=== PATIENT | female | born 1990 | race Two or more races ===

== ENCOUNTER 2019-10-13 04:30 | Emergency (ER) | payer OTHER ==
[2019-10-13] MEDS ORDERED: SODIUM CHLORIDE 0.9% 1,000 ML IV ONE (05:24)
[2019-10-13] MEDS ORDERED: METOCLOPRAMIDE 5 MG/ML 2 ML VIAL IVP STA (05:24)
[2019-10-13] MEDS ORDERED: KETOROLAC 30 MG/ML 1 ML VIAL IVP STA (05:24)
--- NOTE | 2019-10-13 05:32 | ED ---
Headache HPI - General Mode of arrival: ambulatory Limitations: no limitations - History of Present Illness MD Complaint: headache Onset/Timin -: days(s) Onset Description: gradual Location: facial Severity: moderate Quality: other (Pressure) Consistency: constant Improves With: nothing Worsens With: none Treatments Prior to Arrival: none <EduarYosef dotson - Last Filed: 10/13/19 05:33> <Erlin Hermosillo - Last Filed: 10/13/19 07:38> - General Chief Complaint: Headache Stated Complaint: vomiting Time Seen by Provider: 10/13/19 04:32 - Related Data Allergies Allergy/AdvReac Type Severity Reaction Status Date / Time diphenhydramine Allergy Rash/Hives Verified 10/13/19 04:40 [facility] Review of Systems ROS Other: All systems not noted in ROS Statement are negative. Constitutional: Denies: fever, chills, weakness Eyes: Denies: eye pain, eye discharge, vision change ENT: Reports: congestion. Denies: ear pain Respiratory: Denies: cough, dyspnea Cardiovascular: Denies: chest pain Gastrointestinal: Reports: nausea, vomiting. Denies: abdominal pain, diarrhea, constipation Musculoskeletal: Reports: myalgia. Denies: back pain Skin: Denies: rash Neurological: Reports: headache. Denies: weakness, numbness, paresthesias <Yosef Pearson - Last Filed: 10/13/19 05:33> ROS Other: All systems not noted in ROS Statement are negative. <Erlin Hermosillo - Last Filed: 10/13/19 07:38> ROS Statement: Those systems with pertinent positive or pertinent negative responses have been documented in the HPI. Past Medical History Past Medical History: No Reported History History of Any Multi-Drug Resistant Organisms: None Reported Past Surgical History: Adenoidectomy, Tonsillectomy Past Psychological History: Anxiety, Depression Smoking Status: Never smoker Past Alcohol Use History: None Reported Past Drug Use History: None Reported <MichelYosef - Last Filed: 10/13/19 05:33> General Exam Limitations: no limitations General appearance: alert, in no apparent distress Head exam: Present: atraumatic, normocephalic Eye exam: Present: normal appearance, PERRL, EOMI. Absent: scleral icterus, conjunctival injection, nystagmus ENT exam: Present: normal oropharynx Neck exam: Present: normal inspection, full ROM. Absent: meningismus, lymphadenopathy Neurological exam: Present: alert, oriented X3, CN II-XII intact. Absent: motor sensory deficit Skin exam: Present: warm, dry, intact, normal color. Absent: rash <MichelYosef - Last Filed: 10/13/19 05:33> Course Vital Signs 10/13/19 04:36 Temperature 98 F Pulse Rate 84 Respiratory 16 Rate Blood Pressure 133/84 O2 Sat by Pulse 96 Oximetry Medical Decision Making <Erlin Hermosillo - Last Filed: 10/13/19 07:38> - Medical Decision Making 28-year-old female presenting with headache. Care was signed out at shift change awaiting reevaluation and CT brain. CT brain was reviewed, negative for any acute intracranial pathology. Patient had a headache of gradual onset over the past 3 days. She has some associated myalgias and arthralgias. She was tested for COVID yesterday morning, these results are pending. She's had some diarrhea as well. On reevaluation she is feeling better, headache is significantly improved resting. She does have some mild persistent headache and will continue to treat her symptoms at home. She will return to the emergency department with worsening or changing symptoms. (Erlin Hermosillo) Disposition <MichelYosef - Last Filed: 10/13/19 05:33> Is patient prescribed a controlled substance at d/c from ED?: No Time of Disposition: 07:38 <Erlin Hermosillo - Last Filed: 10/13/19 07:38> Clinical Impression: Headache Disposition: HOME SELF-CARE Condition: Good Instructions (If sedation given, give patient instructions): Acute Headache (ED) Referrals: Lux Shepard Jr, DO [Primary Care Provider] - 1-2 days
--- NOTE | 2019-10-13 07:17 | CT ---
EXAMINATION TYPE: CT brain wo con DATE OF EXAM: 10/13/2019 COMPARISON: None HISTORY: headache CT DLP: 1099.[address] of the brain was performed. The ventricles, basal cisterns and sulci overlying the cerebral convexities demonstrate a normal appe arance. There is no evidence for intracranial hemorrhage or sulcal effacement. No mass effects are seen. Osseous calvarium is intact. If symptoms persist consider MRI as clinically warranted. IMPRESSION: 1. No acute intracranial process is seen at this time.
[2019-10-13 08:07] VITALS: BP 113/73; PULSE 77; RESP 18; TEMP 97.8
== END 2019-10-13 08:06 | disposition home or self-care (01) ==
LOC: EC 04:30
DX: R51 Headache (principal); M79.10 Myalgia, unspecified site; M25.50 Pain in unspecified joint; R19.7 Diarrhea, unspecified; Z88.8 Allergy status to other drugs, medicaments and biological substances
CPT/HCPCS: 70450; 96374; 96375; 96361 ×2; 99284; J2765; J1885

== ENCOUNTER 2019-10-19 10:44 | Emergency (ER) | payer OTHER ==
[2019-10-19] MEDS ORDERED: SODIUM CHLORIDE 0.9% 1,000 ML IV STA (11:31)
[2019-10-19] MEDS ORDERED: KETOROLAC 30 MG/ML 1 ML VIAL IVP STA (11:31)
[2019-10-19] MEDS ORDERED: METOCLOPRAMIDE 5 MG/ML 2 ML VIAL IVP STA (11:31)
[2019-10-19] MEDS ORDERED: diphenhydrAMINE 50 MG/ML 1 ML VIAL IVP STA (11:31)
[2019-10-19 11:54] LABS: Basophils # (A) 0.1 k/uL (0-0.2); Basophils % (A) 1 %; Eosinophils # (A) 0.1 k/uL (0-0.7); Eosinophils % (A) 1 %; HCT 43.4 % (34.0-46.0); HGB 14.2 gm/dL (11.4-16.0); Lymphocytes # (A) 1.1 k/uL (1.0-4.8); Lymphocytes % (A) 15 %; MCH 28.9 pg (25.0-35.0); MCHC 32.6 g/dL (31.0-37.0); MCV 88.5 fL (80.0-100.0); Monocytes # (A) 0.2 k/uL (0-1.0); Monocytes % (A) 3 %; Neutrophils # (A) 5.9 k/uL (1.3-7.7); Neutrophils % (A) 79 %; Platelet Count 321 k/uL (150-450); RBC 4.91 m/uL (3.80-5.40); RDW 12.9 % (11.5-15.5); WBC 7.5 k/uL (3.8-10.6)
[2019-10-19 11:59] LABS: ALT 12 U/L (4-34); AST 19 U/L (14-36); African American GFR (CKD) >90 (>60 ml/min/1.73 sqM); Albumin 4.5 g/dL (3.5-5.0); Alkaline Phosphatase 76 U/L (38-126); Anion Gap 9 mmol/L; Blood Urea Nitrogen 8 mg/dL (7-17); Calcium 9.3 mg/dL (8.4-10.2); Carbon Dioxide 27 mmol/L (22-30); Chloride 101 mmol/L (98-107); Glucose 106 mg/dL (74-99); Non-African American GFR(CKD) >90 (>60 ml/min/1.73 sqM); Potassium 4.2 mmol/L (3.5-5.1); Sodium 137 mmol/L (137-145); Total Bilirubin 0.5 mg/dL (0.2-1.3); Total Protein 7.5 g/dL (6.3-8.2)
[2019-10-19 12:13] LABS: Appearance,Urine Cloudy (Clear); Bacteria,Urine Rare /hpf; Bilirubin,Urine Negative (Negative); Blood,Urine Negative (Negative); Color,Urine Light Yellow; Glucose,Urine (UA) Negative (Negative); Ketones,Urine Negative (Negative); Leukocyte Esterase,Urine Negative (Negative); Mucus,Urine Rare /hpf; Nitrite,Urine Negative (Negative); Protein,Urine Negative (Negative); RBC,Urine 7 /hpf (0-5); Specific Gravity,Urine 1.012 (1.001-1.035); Squamous Epithelial Cell,Urine 3 /hpf (0-4); Urobilinogen,Urine <2.0 mg/dL (<2.0); WBC,Urine 1 /hpf (0-5)
[2019-10-19] MEDS ORDERED: MORPHINE SULFATE 4 MG/ML SYRINGE IVP STA (13:28)
--- NOTE | 2019-10-19 13:40 | ED ---
Nausea/Vomiting/Diarrhea HPI - General Chief complaint: Nausea/Vomiting/Diarrhea Stated complaint: dizziness/vomiting Time Seen by Provider: 10/19/19 11:13 Source: patient Mode of arrival: ambulatory Limitations: no limitations - History of Present Illness Initial comments: Patient is a 28-year-old female presenting to the emergency with complaints of a headache as well as feeling nauseous and one episode of vomiting. Patient states she was in the ER last week for same complaint. She did receive a head CT which had normal findings. COVID test was negative. Patient states she did follow up with her PCP and was placed on a pain medicine. Patient has history of anxiety and she feels like this may be playing a role into it. She denies any falls or trauma. She states the pain has still been gradual onset, she had one episode of vomiting this morning. She still continues to be nauseous. There've been no fevers or chills. No chest pain, shortness of breath. No diarrhea. No other recent medications. Patient states she has tried Excedrin for migraine in the past but did not take any this time. She states she took a [place] last night. There are no further complaints at this time. - Related Data Home Medications Medication Instructions Recorded Confirmed HYDROcodone/APAP 5-325MG [[place] 1 tab PO Q8H PRN 10/19/19 10/19/19 5-325] Loratadine [Claritin] 10 mg PO HS 10/19/19 10/19/19 Norgestimate-Ethinyl Estradiol 1 tab PO HS 10/19/19 10/19/19 [Tri-Sprintec Tablet] Ondansetron [Zofran] 4 mg PO Q8H PRN 10/19/19 10/19/19 Sertraline [Zoloft] 50 mg PO HS 10/19/19 10/19/19 Allergies Allergy/AdvReac Type Severity Reaction Status Date / Time diphenhydramine Allergy Rash/Hives Verified 10/19/19 11:50 [From Benadryl] Review of Systems ROS Statement: Those systems with pertinent positive or pertinent negative responses have been documented in the HPI. ROS Other: All systems not noted in ROS Statement are negative. Past Medical History Past Medical History: No Reported History History of Any Multi-Drug Resistant Organisms: None Reported Past Surgical History: Adenoidectomy, Tonsillectomy Past Psychological History: Anxiety, Depression Smoking Status: Never smoker Past Alcohol Use History: None Reported Past Drug Use History: None Reported General Exam - General Exam Comments Initial Comments: GENERAL: Well-appearing, well-nourished and in no acute distress. HEAD: Atraumatic, normocephalic. EYES: Pupils equal round and reactive to light, extraocular movements intact, sclera anicteric, conjunctiva are normal. ENT: TMs normal, nares patent, oropharynx clear without exudates. Moist mucous membranes. NECK: Normal range of motion, supple without lymphadenopathy or JVD. LUNGS: Breath sounds clear to auscultation bilaterally and equal. No wheezes rales or rhonchi. HEART: Regular rate and rhythm without murmurs, rubs or gallops. ABDOMEN: Soft, nontender, normoactive bowel sounds. No guarding, no rebound. No masses appreciated. : Deferred EXTREMITIES: Normal range of motion, no pitting or edema. No clubbing or cyanosis. Patient has 5 out of 5 strength upper and lower extremities bilaterally, sensation is equal and bilateral. NEUROLOGICAL: Cranial nerves II through XII grossly intact. Normal speech, normal gait. PSYCH: Normal mood, normal affect. SKIN: Warm, Dry, normal turgor, no rashes or lesions noted. Limitations: no limitations Course Vital Signs 10/19/19 10/19/19 10/19/19 10:45 13:46 14:30 Temperature 97.8 F 97.9 F Pulse Rate 85 80 Respiratory 20 17 18 Rate Blood Pressure 144/86 132/85 O2 Sat by Pulse 99 97 Oximetry Medical Decision Making - Medical Decision Making Patient is a 28-year-old female here for a headache as well as nausea and vomiting that has been intermittent for the past 1-2 weeks. Patient seen in the ER last week, had normal head CT. Patient's exam is unremarkable, no neural deficits. Patient was given pain meds, Reglan, Benadryl. She reported some improvement in her symptoms. Blood work is unremarkable, urine shows no evidence of infection. Patient was still having a moderate headache so I did add some morphine. She states she feels stable for discharge. She'll follow up with her PCP. Patient is in agreement with this plan of care. Return paramet ers were discussed with the patient and she verbalized understanding. Case discussed with Dr. camejo. - Lab Data Result diagrams: 10/19/19 11:36 10/19/19 11:36 Lab Results 10/19/19 10/19/19 10/19/19 Range/Units 11:36 11:36 11:54 WBC 7.5 (3.8-10.6) k/uL RBC 4.91 (3.80-5.40) m/uL Hgb 14.2 (11.4-16.0) gm/dL Hct 43.4 (34.0-46.0) % MCV 88.5 (80.0-100.0) fL MCH 28.9 (25.0-35.0) pg MCHC 32.6 (31.0-37.0) g/dL RDW 12.9 (11.5-15.5) % Plt Count 321 (150-450) k/uL Neutrophils % 79 % Lymphocytes % 15 % Monocytes % 3 % Eosinophils % 1 % Basophils % 1 % Neutrophils # 5.9 (1.3-7.7) k/uL Lymphocytes # 1.1 (1.0-4.8) k/uL Monocytes # 0.2 (0-1.0) k/uL Eosinophils # 0.1 (0-0.7) k/uL Basophils # 0.1 (0-0.2) k/uL Sodium 137 (137-145) mmol/L Potassium 4.2 (3.5-5.1) mmol/L Chloride 101 (98-107) mmol/L Carbon Dioxide 27 (22-30) mmol/L Anion Gap 9 mmol/L BUN 8 (7-17) mg/dL Creatinine 0.63 (0.52-1.04) mg/dL Est GFR (CKD-EPI)AfAm >90 (>60 ml/min/1.73 sqM) Est GFR (CKD-EPI)NonAf >90 (>60 ml/min/1.73 sqM) Glucose 106 H (74-99) mg/dL Calcium 9.3 (8.4-10.2) mg/dL Total Bilirubin 0.5 (0.2-1.3) mg/dL AST 19 (14-36) U/L ALT 12 (4-34) U/L Alkaline Phosphatase 76 (38-126) U/L Total Protein 7.5 (6.3-8.2) g/dL Albumin 4.5 (3.5-5.0) g/dL Urine Color Light Yellow Urine Appearance Cloudy H (Clear) Urine pH 8.0 (5.0-8.0) Ur Specific [place] 1.012 (1.001-1.035) Urine Protein Negative (Negative) Urine Glucose (UA) Negative (Negative) Urine Ketones Negative (Negative) Urine Blood Negative (Negative) Urine Nitrite Negative (Negative) Urine Bilirubin Negative (Negative) Urine Urobilinogen <2.0 (<2.0) mg/dL Ur Leukocyte Esterase Negative (Negative) Urine RBC 7 H (0-5) /hpf Urine WBC 1 (0-5) /hpf Ur Squamous Epith Cells 3 (0-4) /hpf Urine Bacteria Rare H (None) /hpf Urine Mucus Rare H (None) /hpf Urine HCG, Qual (Not Detectd) 10/19/19 Range/Units 11:54 WBC (3.8-10.6) k/uL RBC (3.80-5.40) m/uL Hgb (11.4-16.0) gm/dL Hct (34.0-46.0) % MCV (80.0-100.0) fL MCH (25.0-35.0) pg MCHC (31.0-37.0) g/dL RDW (11.5-15.5) % Plt Count (150-450) k/uL Neutrophils % % Lymphocytes % % Monocytes % % Eosinophils % % Basophils % % Neutrophils # (1.3-7.7) k/uL Lymphocytes # (1.0-4.8) k/uL Monocytes # (0-1.0) k/uL Eosinophils # (0-0.7) k/uL Basophils # (0-0.2) k/uL Sodium (137-145) mmol/L Potassium (3.5-5.1) mmol/L Chloride (98-107) mmol/L Carbon Dioxide (22-30) mmol/L Anion Gap mmol/L BUN (7-17) mg/dL Creatinine (0.52-1.04) mg/dL Est GFR (CKD-EPI)AfAm (>60 ml/min/1.73 sqM) Est GFR (CKD-EPI)NonAf (>60 ml/min/1.73 sqM) Glucose (74-99) mg/dL Calcium (8.4-10.2) mg/dL Total Bilirubin (0.2-1.3) mg/dL AST (14-36) U/L ALT (4-34) U/L Alkaline Phosphatase (38-126) U/L Total Protein (6.3-8.2) g/dL Albumin (3.5-5.0) g/dL Urine Color Urine Appearance (Clear) Urine pH (5.0-8.0) Ur Specific [place] (1.001-1.035) Urine Protein (Negative) Urine Glucose (UA) (Negative) Urine Ketones (Negative) Urine Blood (Negative) Urine Nitrite (Negative) Urine Bilirubin (Negative) Urine Urobilinogen (<2.0) mg/dL Ur Leukocyte Esterase (Negative) Urine RBC (0-5) /hpf Urine WBC (0-5) /hpf Ur Squamous Epith Cells (0-4) /hpf Urine Bacteria (None) /hpf Urine Mucus (None) /hpf Urine HCG, Qual Not Detected (Not Detectd) Disposition Clinical Impression: Headache, Nausea & vomiting Disposition: HOME SELF-CARE Condition: Stable Instructions (If sedation given, give patient instructions): Migraine Headache (ED) Additional Instructions: Please return to the Emergency Department if symptoms worsen or any other concerns. Follow-up with PCP as discussed. Is patient prescribed a controlled substance at d/c from ED?: No Referrals: Lux Shepard Jr, [Primary Care Provider] - 1-2 days
[2019-10-19 13:48] VITALS: BP 132/85; PULSE 80; TEMP 97.9
[2019-10-19 14:31] VITALS: RESP 18
== END 2019-10-19 14:31 | disposition home or self-care (01) ==
LOC: EC 10:44
DX: R11.2 Nausea with vomiting, unspecified (principal); R51 Headache; F41.9 Anxiety disorder, unspecified; F32.9 Major depressive disorder, single episode, unspecified; Z79.899 Other long term (current) drug therapy; Z88.8 Allergy status to other drugs, medicaments and biological substances
CPT/HCPCS: 36415; 80053; 85025; 81001; 81025; 99284; 96374; 96375 ×3; 96361 ×2; J2270; J1200; J2765; J1885

== ENCOUNTER 2020-04-11 16:26 | Emergency (ER) | payer OTHER ==
[2020-04-11 16:34] VITALS: BP 94/64; PULSE 102; RESP 18; TEMP 98.4
[2020-04-11] MEDS ORDERED: LIDOCAINE 1% INJ 10MG/ML (20 ML MDV) SQ ONE (16:47)
--- NOTE | 2020-04-11 16:47 | ED ---
Wound/Laceration HPI - General Chief Complaint: Wound/Laceration Stated Complaint: finger lac Time Seen by Provider: 04/11/20 16:38 Source: patient Mode of arrival: ambulatory Limitations: no limitations - History of Present Illness Initial Comments: 29-year-old male presenting to emergency departments chief complaint of laceration. States this occurred about half hour prior to arrival. Patient reports laceration was with a new clean knife on the lateral aspect of her right second digit. Patient reports for range of motion. Tetanus up-to-date. Minimal pain. Minimal bleeding. Denies numbness tingling. - Related Data Home Medications Medication Instructions Recorded Confirmed HYDROcodone/APAP 5-325MG [[place] 1 tab PO Q8H PRN 10/19/19 10/19/19 5-325] Loratadine [Claritin] 10 mg PO HS 10/19/19 10/19/19 Norgestimate-Ethinyl Estradiol 1 tab PO HS 10/19/19 10/19/19 [Tri-Sprintec Tablet] Ondansetron [Zofran] 4 mg PO Q8H PRN 10/19/19 10/19/19 Sertraline [Zoloft] 50 mg PO HS 10/19/19 10/19/19 Allergies Allergy/AdvReac Type Severity Reaction Status Date / Time bacitracin Allergy Unknown Verified 04/11/20 16:34 [From Neosporin ([id number])] diphenhydramine Allergy Rash/Hives Verified 04/11/20 16:34 [From Benadryl] neomycin Allergy Unknown Verified 04/11/20 16:34 [From Neosporin ([id number])] polymyxin B Allergy Unknown Verified 04/11/20 16:34 [From Neosporin ([id number])] Review of Systems ROS Statement: Those systems with pertinent positive or pertinent negative responses have been documented in the HPI. ROS Other: All systems not noted in ROS Statement are negative. Past Medical History Past Medical History: No Reported History History of Any Multi-Drug Resistant Organisms: None Reported Past Surgical History: Adenoidectomy, Tonsillectomy Past Psychological History: Anxiety, Depression Smoking Status: Never smoker Past Alcohol Use History: None Reported Past Drug Use History: None Reported General Exam Limitations: no limitations General appearance: alert, in no apparent distress Head exam: Present: atraumatic, normocephalic, normal inspection Eye exam: Present: normal appearance, PERRL, EOMI Pupils: Present: normal accommodation ENT exam: Present: normal exam, normal oropharynx Neck exam: Present: normal inspection, full ROM. Absent: tenderness Respiratory exam: Present: normal lung sounds bilaterally. Absent: respiratory distress, wheezes, rales Cardiovascular Exam: Present: regular rate, normal rhythm, normal heart sounds Extremities exam: Present: normal inspection (Laceration measuring approximately 1 cm linear superficial lateral aspect of the right second digit), full ROM, normal capillary refill. Absent: tenderness, pedal edema, joint swelling, calf tenderness Back exam: Present: normal inspection, full ROM. Absent: tenderness, CVA tenderness (R), CVA tenderness (L) Neurological exam: Present: alert, oriented X3, normal gait Psychiatric exam: Present: normal affect, normal mood Skin exam: Present: warm, dry, intact, normal color Course Vital Signs 04/11/20 16:30 Temperature 98.4 F Pulse Rate 102 H Respiratory 18 Rate Blood Pressure 94/64 O2 Sat by Pulse 98 Oximetry Procedures - Laceration Laceration #1 Consent Obtained: verbal consent Indication: laceration Site: hand (Right second digit) Size (cm): 1 Description: linear, clean Depth: simple, single layer Sedation/Analgesia: none Pre-repair: irrigated extensively, deep structures intact Type of Sutures: nylon Size of Sutures: 4-0 Number of Sutures: 1 Technique: simple, interrupted Patient Tolerated Procedure: well, no complications Medical Decision Making - Medical Decision Making 29-year-old female presenting to emergency Department with chief complaint of laceration. Patient is neurovascularly intact in the right second digit. Extensively irrigated. One suture to complete the laceration repair. Tetanus updated. Return parameters discussed. Case discussed with physician. Disposition Clinical Impression: Laceration Disposition: HOME SELF-CARE Condition: Stable Instructions (If sedation given, give patient instructions): Care For Your Stitches (DC), Laceration (DC) Additional Instructions: Please return to the emergency room in 10 days to have sutures removed. Please watch for any signs of infection which may include increased pain, swelling, redness, fever or chills. Please return to emergency room for any signs of infection do occur. Please use clean soap and water over the area to prevent scabbing over your stitches. Please leave wound covered for the first 24-48 hours and then leave wound open to air. Please return to the emergency room for any other concerns. Is patient prescribed a controlled substance at d/c from ED?: No Referrals: Lux Shepard Jr, DO [Primary Care Provider] - 1-2 days Time of Disposition: 17:00
[2020-04-11] MEDS ORDERED: DIPH,PERTUS(ACELL)TETVAC-LF 0.5 ML VIAL IM ONE (16:53)
== END 2020-04-11 17:02 | disposition home or self-care (01) ==
LOC: EC 16:26
DX: S61.210A Laceration without foreign body of right index finger without damage to nail, initial encounter (principal); F41.9 Anxiety disorder, unspecified; F32.9 Major depressive disorder, single episode, unspecified; Z79.3 Long term (current) use of hormonal contraceptives; Z79.899 Other long term (current) drug therapy; Z88.1 Allergy status to other antibiotic agents; Z88.8 Allergy status to other drugs, medicaments and biological substances; Z23 Encounter for immunization; W26.0XXA Contact with knife, initial encounter; Y93.G1 Activity, food preparation and clean up; Y92.000 Kitchen of unspecified non-institutional (private) residence as the place of occurrence of the external cause
CPT/HCPCS: 12001; 90471; 90715; 99282

== ENCOUNTER → 2021-06-29 | Outpatient (CLI) | payer OTHER ==
--- NOTE | 2021-06-29 11:48 | NM ---
EXAMINATION TYPE: NM hepatobiliary w EF DATE OF EXAM: 06/29/2021 COMPARISON: NONE HISTORY: 30-year-old female R10.12, left upper quadrant abdominal pain TECHNIQUE: After the intravenous administration of 4.8 mCi Tc 99m Mebrofenin hepatobiliary scintigrap hy is performed. Immediate images post injection. FINDINGS: There is satisfactory initial accumulation of tracer by the liver. The gallbladder is visualized wit hin 10 minutes. At one hour, 8 ounces of oral ensure plus is given to mimic CCK and gallbladder ejection fraction is calculated at 84 %, slightly elevated above the expected range (35-80%). Small bowel is visualized f ollowing intra-articular administration IMPRESSION: 1. No scintigraphic evidence for acute/chronic cholecystitis or biliary dyskinesia. 2. However, there is a mildly elevated gallbladder ejection fraction of 84%. Findings are nonspecific but may be seen with gallbladder hyperkinesis.
== END | disposition home or self-care (01) ==
LOC: RADNMMAIN 06:48
PROVIDERS: ATTEND Family Medicine
DX: R10.12 Left upper quadrant pain (principal); R93.2 Abnormal findings on diagnostic imaging of liver and biliary tract
CPT/HCPCS: 78226; A9537

== ENCOUNTER 2021-11-28 21:18 | Emergency (ER) | payer OTHER ==
[2021-11-28 21:28] VITALS: RESP 20
--- NOTE | 2021-11-28 21:51 | XR ---
EXAMINATION TYPE: XR hand complete RT DATE OF EXAM: 11/28/2021 COMPARISON: NONE HISTORY: Pain TECHNIQUE: 3 views FINDINGS: Metacarpals are intact. The fingers are intact. Carpal bones are intact. IMPRESSION: Negative right hand exam. No fracture seen.
--- NOTE | 2021-11-28 21:52 | XR ---
EXAMINATION TYPE: XR forearm RT DATE OF EXAM: 11/28/2021 COMPARISON: NONE HISTORY: Pain TECHNIQUE: 2 views FINDINGS: Radius and ulna appear intact. I see no fracture nor dislocation. Joint spaces are normal. IMPRESSION: Negative right forearm exam. No fracture seen.
--- NOTE | 2021-11-28 21:54 | XR ---
EXAMINATION TYPE: XR ankle complete RT DATE OF EXAM: 11/28/2021 COMPARISON: None HISTORY: Pain TECHNIQUE: 3 views FINDINGS: 3 views show no fracture nor dislocation. Joint spaces are normal. There are no pathologic calcificat ions. IMPRESSION: Negative right ankle exam. No fracture.
[2021-11-28] MEDS ORDERED: HYDROcodone/APAP 5-325MG 1 EACH TAB PO STA (23:28)
--- NOTE | 2021-11-28 23:50 | ED ---
General Adult HPI - General Chief complaint: Fall Stated complaint: Fall Time Seen by Provider: 11/28/21 23:16 Source: patient, RN notes reviewed Mode of arrival: ambulatory Limitations: no limitations - History of Present Illness Initial comments: 30-year-old female presents to the emergency Department with complaints of injuries to bilateral upper extremities and left lower extremity, onset 5:00 this evening. Patient states she tripped on an area of uneven pavement causing her fall. States she cleansed wounds prior to arrival and applied bacitracin. Complaints of right forearm and wrist pain extending into the thumb. Also complains of left lower extremity pain. Reports recent tetanus shot. Did not take anything for pain prior to arrival. Denies fever, chills, headache, neck pain, back pain, chest pain, shortness of breath, or any other injuries at this time. - Related Data Home Medications Medication Instructions Recorded Confirmed Albuterol Inhaler [Ventolin Hfa 2 puff INHALATION RT-QID PRN 11/26/21 11/26/21 Inhaler] Azelastine HCl [Astepro] 1 - 2 spray EA NOSTRIL BID PRN 11/26/21 11/26/21 Ergocalciferol (Vitamin D2) 1,250 mcg PO Q7D 11/26/21 11/26/21 [Drisdol (50,000 Iu)] Fluticasone Propion/Salmeterol 2 puff INHALATION RT-BID 11/26/21 11/26/21 [Advair Hfa 115-21 Mcg Inhaler] dexAMETHasone 6 mg PO DAILY 11/26/21 11/26/21 Previous Rx's Medication Instructions Recorded Metoclopramide HCl [Reglan] 10 mg PO Q8H PRN 7 Days #21 tab 11/26/21 Ibuprofen [Motrin] 600 mg PO Q8HR PRN #30 tab 11/28/21 Allergies Allergy/AdvReac Type Severity Reaction Status Date / Time bacitracin Allergy Unknown Verified 11/28/21 21:28 [From Neosporin ([id number])] diphenhydramine Allergy Rash/Hives Verified 11/28/21 21:28 [From Benadryl] neomycin Allergy Unknown Verified 11/28/21 21:28 [From Neosporin ([id number])] polymyxin B Allergy Unknown Verified 11/28/21 21:28 [From Neosporin ([id number])] Review of Systems ROS Statement: Those systems with pertinent positive or pertinent negative responses have been documented in the HPI. ROS Other: All systems not noted in ROS Statement are negative. Past Medical History Past Medical History: No Reported History Additional Past Medical History / Comment(s): luke dx 11-17-2021 History of Any Multi-Drug Resistant Organisms: None Reported Past Surgical History: Adenoidectomy, Tonsillectomy Past Psychological History: Anxiety, Depression Smoking Status: Never smoker Past Alcohol Use History: None Reported Past Drug Use History: None Reported General Exam Limitations: no limitations (Well-developed, well-nourished female in no acute distress. Initial temperature 97.8, pulse 98, respirations 20, blood pressure 144/92, pulse ox 100% on room air.) General appearance: alert, in no apparent distress Head exam: Present: atraumatic, normocephalic, normal inspection Neck exam: Present: normal inspection, full ROM. Absent: tenderness, meningismus, lymphadenopathy Respiratory exam: Present: normal lung sounds bilaterally. Absent: respiratory distress, wheezes, rales, rhonchi, stridor Cardiovascular Exam: Present: regular rate, normal rhythm, normal heart sounds. Absent: systolic murmur, diastolic murmur, rubs, gallop, clicks GI/Abdominal exam: Present: soft, normal bowel sounds. Absent: distended, tenderness, guarding, rebound, rigid Right Shoulder Exam: Present: normal inspection, full ROM. Absent: tenderness, swelling Upper Arm exam: Present: normal inspection, full ROM. Absent: tenderness, swelling Elbow exam: Present: normal inspection, full ROM, tenderness. Absent: tenderness over radial head Forearm Wrist exam: Present: normal inspection, full ROM, tenderness. Absent: deformity, crepitus, erythema Hand Wrist exam: Present: normal inspection, full ROM, tenderness, swelling. Absent: erythema Neuro motor exam: Present: wrist extension intact, thumb opposition intact, fingers 2-5 abduction intact Vascular: Present: normal capillary refill, radial pulse, brachial pulse, ulnar pulse. Absent: vascular compromise, Pallo Left Upper Arm exam: Present: normal inspection, full ROM. Absent: tenderness, swelling Elbow exam: Present: full ROM, abrasion Forearm Wrist exam: Present: normal inspection, full ROM. Absent: tenderness, swelling Vascular: Present: normal capillary refill, radial pulse. Absent: vascular compromise, Pallo Left Upper Leg exam: Present: normal inspection, full ROM. Absent: tenderness, swelling Knee exam: Present: full ROM, tenderness, abrasion, full knee extension. Absent: swelling, deformity Lower Leg exam: Present: normal inspection, full ROM. Absent: tenderness, swelling Ankle exam: Present: normal inspection, full ROM Foot/Toe exam: Present: normal inspection, full ROM. Absent: tenderness, swelling Neurovascular tendon exam: Present: no vascular compromise Right Knee exam: Present: normal inspection, full ROM. Absent: tenderness, swelling Lower Leg exam: Present: normal inspection, full ROM. Absent: tenderness, swelling Ankle exam: Present: tenderness, swelling (Mild swelling lateral malleolus). Absent: full ROM, ecchymosis, deformity, crepitus, erythema Foot/Toe exam: Present: normal inspection, full ROM Neurovascular tendon exam: Present: no vascular compromise Back exam: Present: normal inspection. Absent: paraspinal tenderness, vertebral tenderness Neurological exam: Present: alert, oriented X3, CN II-XII intact Psychiatric exam: Present: normal affect, normal mood Skin exam: Present: warm, dry, normal color. Absent: rash Course Vital Signs 11/28/21 11/28/21 21:24 23:56 Temperature 97.8 F 98.0 F Pulse Rate 98 92 Respiratory 20 20 Rate Blood Pressure 144/92 128/77 O2 Sat by Pulse 100 98 Oximetry Medical Decision Making - Medical Decision Making This is a pleasant 30-year-old female who presents to the emergency department for evaluation of multiple minor injuries sustained in a trip and fall. No head, neck, or back injury. Superficial abrasions were cleansed prior to arrival therefore redressed with nonadherent wraps. [place] wrap was applied to the right wrist. X-rays were negative. [place] was given with improvement. Patient is instructed to follow up with her PCP for a recheck this week. Return parameters were discussed in detail. Patient verbalizes understanding and agrees with this plan. Attending:Michel. - Radiology Data Radiology results: report reviewed, image reviewed X-ray of the right hand was obtained. Report was reviewed in its entirety. Impression per Dr. Arora is negative right hand exam. No fractures seen. X-ray of the right forearm was obtained. Report was reviewed in its entirety. Impression per Dr. Arora is negative right forearm exam. No fracture seen. X-ray of the right ankle is obtained. Report was reviewed in its entirety. Impression per Dr. Arora is negative right ankle exam. No fracture. Disposition Clinical Impression: Abrasions of multiple sites, Right wrist injury Disposition: HOME SELF-CARE Condition: Stable Instructions (If sedation given, give patient instructions): Abrasion (ED), Wrist Sprain (ED) Additional Instructions: Take Motrin as needed for discomfort. Apply ice for no more than 20 minutes per hour. Keep right arm elevated while at rest. Gently cleanse wounds twice daily with mild soap and water. Keep covered while out of the house. Follow-up with your PCP for a recheck as needed. Return to the emergency department with any new, worsening, or concerning symptoms. Prescriptions: Ibuprofen [Motrin] 600 mg PO Q8HR PRN #30 tab PRN Reason: Pain Is patient prescribed a controlled substance at d/c from ED?: No Referrals: Lux Shepard Jr, DO [Primary Care Provider] - 1-2 days Time of Disposition: 23:50
[2021-11-29 01:14] VITALS: BP 128/77; PULSE 92; TEMP 98
== END 2021-11-28 23:56 | disposition home or self-care (01) ==
LOC: EC 21:18
DX: S60.811A Abrasion of right wrist, initial encounter (principal); Z86.16 Personal history of COVID-19; Z79.51 Long term (current) use of inhaled steroids; Z88.2 Allergy status to sulfonamides; Z88.8 Allergy status to other drugs, medicaments and biological substances; Z88.1 Allergy status to other antibiotic agents; W01.0XXA Fall on same level from slipping, tripping and stumbling without subsequent striking against object, initial encounter
CPT/HCPCS: 99283

== ENCOUNTER 2024-03-13 19:59 | Emergency (ER) | payer BC, OTHER ==
--- NOTE | 2024-03-13 20:35 | ED ---
General Adult HPI - General Source: patient, RN notes reviewed <Alison Gaytan - Last Filed: 03/13/24 20:34> <Yosi Mendenhall - Last Filed: 03/13/24 23:39> - General Stated complaint: Vaginal bleeding,sore throat Time Seen by Provider: 03/13/24 20:18 - History of Present Illness Initial comments: Quick [id number] female presenting to the emergency department for complaint of right lower quadrant abdominal pain that started today in addition to an episode of hematuria. Additionally, patient is that she has been experiencing congestion, sore throat, rhinorrhea of the past few days. (Alison Gaytan) Dictation was produced using [employer] dictation software. please excuse any grammatical, word or spelling errors. Chief Complaint: 33-year-old female presents to the emergency department right lower quadrant pain History of Present Illness: Patient 33-year-old female presents to the emergency department late right lower quadrant pain. Patient has past medical history of kidney stones states that her symptoms today feel different than her kidney stone pain. States that she has pain in the right lower quadrant along with some constitutional symptoms. States that her daughter has been sick with URI type symptoms. Patient denies . Denies any nausea or vomiting. No diarrhea. Denies any history of abdominal surgery. The ROS documented in this emergency department record has been reviewed and confirmed by me. Those systems with pertinent positive or negative responses have been documented in the HPI. All other systems are other negative and/or noncontributory. (Yosi Mendenhall) - Related Data Home Medications Medication Instructions Recorded Confirmed Albuterol Inhaler [Ventolin Hfa 2 puff INHALATION RT-QID PRN 11/26/21 11/26/21 Inhaler] Azelastine HCl [Astepro] 1 - 2 spray EA NOSTRIL BID PRN 11/26/21 11/26/21 Ergocalciferol (Vitamin D2) 1,250 mcg PO Q7D 11/26/21 11/26/21 [Drisdol (50,000 Iu)] Fluticasone Propion/Salmeterol 2 puff INHALATION RT-BID 11/26/21 11/26/21 [Advair Hfa 115-21 Mcg Inhaler] dexAMETHasone [Decadron] 6 mg PO DAILY 11/26/21 11/26/21 Previous Rx's Medication Instructions Recorded Metoclopramide HCl [Reglan] 10 mg PO Q8H PRN 7 Days #21 tab 11/26/21 Ibuprofen [Motrin] 600 mg PO Q8HR PRN #30 tab 11/28/21 Allergies Allergy/AdvReac Type Severity Reaction Status Date / Time bacitracin Allergy Unknown Verified 03/13/24 21:35 [From Neosporin ([id number])] diphenhydramine Allergy Rash/Hives Verified 03/13/24 21:35 [From Benadryl] neomycin Allergy Unknown Verified 03/13/24 21:35 [From Neosporin ([id number])] polymyxin B Allergy Unknown Verified 03/13/24 21:35 [From Neosporin ([id number])] Review of Systems ROS Other: All systems not noted in ROS Statement are negative. <Alison Gaytan - Last Filed: 03/13/24 20:34> ROS Other: All systems not noted in ROS Statement are negative. <Yosi Mendenhall - Last Filed: 03/13/24 23:39> ROS Statement: Those systems with pertinent positive or pertinent negative responses have been documented in the HPI. Past Medical History Past Medical History: No Reported History Additional Past Medical History / Comment(s): covid dx 11-17-2021 History of Any Multi-Drug Resistant Organisms: None Reported Past Surgical History: Adenoidectomy, Tonsillectomy Past Psychological History: Anxiety, Depression Smoking Status: Never smoker Past Alcohol Use History: None Reported Past Drug Use History: None Reported <Alison Gaytan - Last Filed: 03/13/24 20:34> General Exam <Alison Gaytan - Last Filed: 03/13/24 20:34> <Yosi Mendenhall - Last Filed: 03/13/24 23:39> - General Exam Comments Initial Comments: Visual Physical Exam Vital signs reviewed General: Well-appearing, nontoxic, no acute distress. Head: Normocephalic, atraumatic Eyes: PERRLA, EOMI ENT: Airway patent Chest: Nonlabored breathing Skin: No visual rash, normal skin tone Neuro: Alert and oriented 3 Musculoskeletal: No gross abnormalities (Alison Gaytan) PHYSICAL EXAM: General Impression: Alert and oriented x3, not in acute distress HEENT: Normocephalic atraumatic, extra-ocular movements intact, pupils equal and reactive to light bilaterally, mucous membranes moist. Cardiovascular: Heart regular rate and rhythm Chest: Able to complete full sentences, no retractions, no tachypnea Abdomen: abdomen soft, tenderness to McBurney's point without any rebound, non- distended, no organomegaly Musculoskeletal: Pulses present and equal in all extremities, no peripheral edema Motor: no focal deficits noted Neurological: CN II-XII grossly intact, no focal motor or sensory deficits noted Skin: Intact with no visualized rashes Psych: Normal affect and mood (Yosi Mendenhall) Course Vital Signs 03/13/24 03/13/24 21:36 22:40 Temperature 98.5 F 100.4 F H Pulse Rate 106 H Respiratory 18 Rate Blood Pressure 166/121 O2 Sat by Pulse 100 Oximetry Medical Decision Making <Alison Gaytan - Last Filed: 03/13/24 20:34> - Lab Data Result diagrams: 03/13/24 22:39 03/13/24 22:39 <Yosi Mendenhall - Last Filed: 03/13/24 23:39> - Medical Decision Making I completed the quick note portion of this chart signed Alison Gaytan PA-C (Alison Gaytan) Was pt. sent in by a medical professional or institution ([facility] [place], M[employer] LOAN UNDERWRITER, urgent care, hospital, or chcf...) When possible be specific @ -No Did you speak to anyone other than the patient for history (EMS, parent, family, police, friend...)? What history was obtained from this source @ -No Did you review nursing and triage notes (agree or disagree)? Why? @ -I reviewed and agree with nursing and triage notes Were old charts reviewed (outside hosp., previous admission, EMS record, old EKG, old radiological studies, urgent care reports/EKG's, ch[facility] records)? Report findings @ -No old charts were reviewed Differential Diagnosis (chest pain, altered mental status, abdominal pain women, abdominal pain men, vaginal bleeding, musculoskeletal, weakness, fever, dyspnea, syncope, headache, dizziness, GI bleed, back pain, seizure, CVA, palpatations, mental health)? @ -Differential Abdominal Pain Women: Appendicitis, Cholecystitis, diverticulosis, ischemic bowel, pancreatitis, hepatitis, UTI, gastroenteritis, AAA, incarcerated hernia, bowel obstruction, constipation, inflammatory bowel, hepatitis, peptic ulcer disease, splenic infarction, perforated viscus, vulvitis, ovarian torsion, PID, kidney stone, placenta abruption, this is not meant to be an all-inclusive list EKG interpreted by me (3pts min.). @ -None done X-rays interpreted by me (1pt min.). @ -None done CT interpreted by me (1pt min.). @ -CT shows no acute appendicitis.. He does appear to be a 3 mm calculus at the UPJ with mild hydro- U/S interpreted by me (1pt. min.). @ -None done What testing was considered but not performed or refused? (CT, X-rays, U/S, labs)? Why? @ -None What meds were considered but not given or refused? Why? @ -None Was smoking cessation discussed for >3mins.? @ -No Were there social determinants of health that impacted care today? How? (Homelessness, low income, unemployed, alcoholism, drug addiction, transportation, low edu. Level, literacy, decrease access to med. care, longterm, rehab)? @ -No Was there de-escalation of care discussed even if they declined (Discuss DNR or withdrawal of care, Hospice)? DNR status @ -No What co-morbidities impacted this encounter? (DM, HTN, Smoking, COPD, CAD, Cancer, CVA, ARF, Chemo, Hep., AIDS, mental health diagnosis, sleep apnea, morbid obesity)? @ -None Was patient admitted / discharged? Hospital course, mention meds given and route, prescriptions, significant lab abnormalities, going to OR and other pertinent info. @ -33-year-old female presents to the emergency department right lower quadrant abdominal pain. Vital signs upon arrival shows temperature 100.4, rest of vital signs within acceptable limits. Patient is exposed to daughter who has URI type symptoms. Laboratory evaluation obtained. CBC, metabolic panel is unre markable. No elevated renal function. She did have a fever of 100.4 given antipyretics. Urinalysis shows greater than [address] shows stone that is obstructing. Viral testing is positive for COVID-19. Patient reevaluated bedside 11:30 PM found to be well-appearing. Patient will be discharged with return precautions. Advised follow-up with urologist. Did you discuss the management of the patient with other professionals (professionals i.e. , PA, MORTGAGE LOAN UNDERWRITER, lab, RT, psych nurse, elementary school social worker, [facility], teacher, executive officer special warfare team, dependency case manager)? Give summary @ -No Was critical care preformed (if so, how long)? @ -No Undiagnosed new problem with uncertain prognosis? @ -No Drug Therapy requiring intensive monitoring for toxicity (Heparin, Nitro, Insulin, Cardizem)? @ -No Were any procedures done? @ -No Diagnosis/symptom? Acute, or Chronic, or Acute on Chronic? Uncomplicated (without systemic symptoms) or Complicated (systemic symptoms)? @ -Symptomatic nephrolithiasis, coronavirus Side effects of treatment? @ -No Exacerbation, Progression, or Severe Exacerbation? @ -No Poses a threat to life or bodily function? How? (Chest pain, [place], [place], pneumonia, PE, COPD, DKA, ARF, appy, cholecystitis, CVA, Diverticulitis, Homicidal, Suicidal, threat to staff... and all critical care pts) @ -yes (Yosi Mendenhall) - Lab Data Lab Results 03/13/24 03/13/24 03/13/24 Range/Units 22:01 22:01 22:01 WBC (3.8-10.6) k/uL RBC (3.80-5.40) m/uL Hgb (11.4-16.0) gm/dL Hct (34.0-46.0) % MCV (80.0-100.0) fL MCH (25.0-35.0) pg MCHC (31.0-37.0) g/dL RDW (11.5-15.5) % Plt Count (150-450) k/uL MPV Neutrophils % % Lymphocytes % % Monocytes % % Eosinophils % % Basophils % % Neutrophils # (1.3-7.7) k/uL Lymphocytes # (1.0-4.8) k/uL Monocytes # (0-1.0) k/uL Eosinophils # (0-0.7) k/uL Basophils # (0-0.2) k/uL Sodium (137-145) mmol/L Potassium (3.5-5.1) mmol/L Chloride (98-107) mmol/L Carbon Dioxide (22-30) mmol/L Anion Gap mmol/L BUN (7-17) mg/dL Creatinine (0.52-1.04) mg/dL Est GFR (CKD-EPI)AfAm (>60 ml/min/1.73 sqM) Est GFR (CKD-EPI)NonAf (>60 ml/min/1.73 sqM) Glucose (74-99) mg/dL Plasma Lactic Acid Wallace (0.7-2.0) mmol/L Calcium (8.4-10.2) mg/dL Total Bilirubin (0.2-1.3) mg/dL AST (14-36) U/L ALT (4-34) U/L Alkaline Phosphatase (38-126) U/L Total Protein (6.3-8.2) g/dL Albumin (3.5-5.0) g/dL Urine Color Red Urine Appearance Clear (Clear) Urine pH 6.5 (5.0-8.0) Ur Specific [place] 1.022 (1.001-1.035) Urine Protein 1+ H (Negative) Urine Glucose (UA) Negative (Negative) Urine Ketones Trace H (Negative) Urine Blood Large H (Negative) Urine Nitrite Negative (Negative) Urine Bilirubin Negative (Negative) Urine Urobilinogen <2.0 (<2.0) mg/dL Ur Leukocyte Esterase Small H (Negative) Urine RBC >182 H (0-5) /hpf Urine WBC 17 H (0-5) /hpf Urine Mucus Occasional H (None) /hpf Urine HCG, Qual Not Detected (Not Detectd) Influenza Type A (PCR) Not Detected (Not Detectd) Influenza Type B (PCR) Not Detected (Not Detectd) RSV (PCR) Not Detected (Not Detectd) SARS-CoV-2 (PCR) Detected A (Not Detectd) 03/13/24 03/13/24 03/13/24 Range/Units 22:39 22:39 22:39 WBC 7.3 (3.8-10.6) k/uL RBC 4.70 (3.80-5.40) m/uL Hgb 14.1 (11.4-16.0) gm/dL Hct 41.4 (34.0-46.0) % MCV 88.2 (80.0-100.0) fL MCH 30.0 (25.0-35.0) pg MCHC 34.0 (31.0-37.0) g/dL RDW 12.5 (11.5-15.5) % Plt Count 267 (150-450) k/uL MPV 8.0 Neutrophils % 72 % Lymphocytes % 17 % Monocytes % 6 % Eosinophils % 4 % Basophils % 1 % Neutrophils # 5.3 (1.3-7.7) k/uL Lymphocytes # 1.2 (1.0-4.8) k/uL Monocytes # 0.4 (0-1.0) k/uL Eosinophils # 0.3 (0-0.7) k/uL Basophils # 0.1 (0-0.2) k/uL Sodium 140 (137-145) mmol/L Potassium 3.9 (3.5-5.1) mmol/L Chloride 108 H (98-107) mmol/L Carbon Dioxide 26 (22-30) mmol/L Anion Gap 6 mmol/L BUN 8 (7-17) mg/dL Creatinine 0.83 (0.52-1.04) mg/dL Est GFR (CKD-EPI)AfAm >90 (>60 ml/min/1.73 sqM) Est GFR (CKD-EPI)NonAf >90 (>60 ml/min/1.73 sqM) Glucose 97 (74-99) mg/dL Plasma Lactic Acid Wallace 0.9 (0.7-2.0) mmol/L Calcium 9.3 (8.4-10.2) mg/dL Total Bilirubin 0.7 (0.2-1.3) mg/dL AST 24 (14-36) U/L ALT 24 (4-34) U/L Alkaline Phosphatase 100 (38-126) U/L Total Protein 7.1 (6.3-8.2) g/dL Albumin 4.6 (3.5-5.0) g/dL Urine Color Urine Appearance (Clear) Urine pH (5.0-8.0) Ur Specific [place] (1.001-1.035) Urine Protein (Negative) Urine Glucose (UA) (Negative) Urine Ketones (Negative) Urine Blood (Negative) Urine Nitrite (Negative) Urine Bilirubin (Negative) Urine Urobilinogen (<2.0) mg/dL Ur Leukocyte Esterase (Negative) Urine RBC (0-5) /hpf Urine WBC (0-5) /hpf Urine Mucus (None) /hpf Urine HCG, Qual (Not Detectd) Influenza Type A (PCR) (Not Detectd) Influenza Type B (PCR) (Not Detectd) RSV (PCR) (Not Detectd) SARS-CoV-2 (PCR) (Not Detectd) Disposition <Alison Gaytan - Last Filed: 03/13/24 20:34> Is patient prescribed a controlled substance at d/c from ED?: No Time of Disposition: 23:31 <Yosi Mendenhall - Last Filed: 03/13/24 23:39> Clinical Impression: Coronavirus infection, Kidney stone Disposition: HOME SELF-CARE Condition: Fair Instructions (If sedation given, give patient instructions): Coronavirus Disease 2019 (COVID-19), Kidney Stones (ED) Referrals: Lux Shepard Jr, DO [Primary Care Provider] - 1-2 days Yovani Hogue MD [STAFF PHYSICIAN] - 1-2 days
[2024-03-13 22:21] LABS: Appearance,Urine Clear (Clear); Bilirubin,Urine Negative (Negative); Blood,Urine Large (Negative); Color,Urine Red; Glucose,Urine (UA) Negative (Negative); Ketones,Urine Trace (Negative); Leukocyte Esterase,Urine Small (Negative); Mucus,Urine Occasional /hpf; Nitrite,Urine Negative (Negative); PH, Urine 6.5 (5.0-8.0); Protein,Urine 1+ (Negative); RBC,Urine >182 /hpf (0-5); Specific Gravity,Urine 1.022 (1.001-1.035); Urobilinogen,Urine <2.0 mg/dL (<2.0); WBC,Urine 17 /hpf (0-5)
[2024-03-13 22:56] LABS: Basophils # (A) 0.1 k/uL (0-0.2); Basophils % (A) 1 %; Eosinophils # (A) 0.3 k/uL (0-0.7); Eosinophils % (A) 4 %; HCT 41.4 % (34.0-46.0); HGB 14.1 gm/dL (11.4-16.0); Lymphocytes # (A) 1.2 k/uL (1.0-4.8); Lymphocytes % (A) 17 %; MCV 88.2 fL (80.0-100.0); Monocytes # (A) 0.4 k/uL (0-1.0); Monocytes % (A) 6 %; Neutrophils # (A) 5.3 k/uL (1.3-7.7); Neutrophils % (A) 72 %; Platelet Count 267 k/uL (150-450); RDW 12.5 % (11.5-15.5); WBC 7.3 k/uL (3.8-10.6)
[2024-03-13 23:17] LABS: ALT 24 U/L (4-34); AST 24 U/L (14-36); African American GFR (CKD) >90 (>60 ml/min/1.73 sqM); Albumin 4.6 g/dL (3.5-5.0); Alkaline Phosphatase 100 U/L (38-126); Anion Gap 6 mmol/L; Blood Urea Nitrogen 8 mg/dL (7-17); Calcium 9.3 mg/dL (8.4-10.2); Carbon Dioxide 26 mmol/L (22-30); Chloride 108 mmol/L (98-107); Glucose 97 mg/dL (74-99); Non-African American GFR(CKD) >90 (>60 ml/min/1.73 sqM); Potassium 3.9 mmol/L (3.5-5.1); Sodium 140 mmol/L (137-145); Total Bilirubin 0.7 mg/dL (0.2-1.3); Total Protein 7.1 g/dL (6.3-8.2)
--- NOTE | 2024-03-13 23:25 | CT ---
EXAMINATION TYPE: CT abdomen pelvis w con DATE OF EXAM: 03/13/2024 HISTORY: Right lower quadrant pain and hematuria CT DLP: 45mGycm Automated Exposure Control for Dose Reduction was Utilized. CONTRAST: CT scan of the abdomen and pelvis is performed with IV Contrast, patient injected with 100 mL of Isov ue 300. COMPARISON: None FINDINGS: LUNG BASES: No significant abnormality is appreciated. LIVER/GB: No significant abnormality is appreciated. PANCREAS: No significant abnormality is seen. SPLEEN: No significant abnormality is seen. ADRENALS: No significant abnormality is seen. KIDNEYS: Approximately 9 scattered small left renal calculi including a 5 mm calculus in the left rosi al pelvis axial image 37. No left-sided hydronephrosis. Approximately 7 small right renal calculi. There is mild right-sided pyelocaliectasis due to obstruct ing 3 mm calculus at UPJ coronal image 57. No intraluminal calculus in the bladder. BOWEL: Incidental normal-appearing appendix. Extending from cecum no abnormal small or large bowel di latation. UTERUS/ADNEXA: No gross abnormality seen. LYMPH NODES: No greater than 1cm abdominal or pelvic lymph nodes are appreciated. OSSEOUS STRUCTURES: No significant abnormality is seen. OTHER: No significant additional abnormality is seen. IMPRESSION: There is 3 mm calculus at right UPJ causing mild right-sided hydronephrosis. [facility] Ivan Aguirre, , 03/13/2024 11:23 PM
[2024-03-14] MEDS: ONDANSETRON 4 MG/2 ML VIAL IVP STA (00:03)
[2024-03-14] MEDS: KETOROLAC 15 MG/ML 1 ML VIAL IVP STA (00:03)
[2024-03-14] MEDS: MORPHINE SULFATE 4 MG/ML SYRINGE IV STA (00:04)
[2024-03-14 00:25] VITALS: BP 115/78; PULSE 87; RESP 19; TEMP 99.4
== END 2024-03-14 00:37 | disposition home or self-care (01) ==
LOC: EC 19:59
DX: U07.1 COVID-19 (principal); N13.2 Hydronephrosis with renal and ureteral calculous obstruction; Z88.8 Allergy status to other drugs, medicaments and biological substances
CPT/HCPCS: 36415; 80053; 83605; 85025; 81001; 81025; 87636; 74177; 99284; 96374; 96375; Q9967

== ENCOUNTER 2024-03-20 15:20 | Emergency (ER) | payer BC ==
[2024-03-20 15:23] VITALS: RESP 18
--- NOTE | 2024-03-20 15:51 | ED ---
General Adult HPI - General Source: patient, RN notes reviewed Mode of arrival: ambulatory Limitations: no limitations <Alison Gaytan - Last Filed: 03/20/24 15:49> <Mora Lubin - Last Filed: 03/21/24 00:38> - General Chief complaint: Abdominal Pain Stated complaint: Abd/back pain Time Seen by Provider: 03/20/24 15:38 - History of Present Illness Initial comments: Quick [id number] female presenting to emergency department chief complaint of left flank pain with radiation into the front of her abdomen. Patient is that she was evaluated emergency department last week which was diagnosed with a right kidney stone however now she experiencing left-sided pain. Patient is scheduled with Dr. Cervantes on 04/03/24 for kidney stone removal. Endorses mild hematuria. (Alison Gaytan) 33-year-old female presents to the emergency department for evaluation of left flank pain. Patient states that this has been going on for the past day. She reports radiation to her abdomen. She does have a history of kidney stones. She recently feels the same but worse in severity. Admits to hematuria. Denies recent fever, chills. Admits to dysuria. (Mora Lubin) - Related Data Home Medications Medication Instructions Recorded Confirmed Albuterol Inhaler [Ventolin Hfa 1 puff INHALATION RT-Q4H PRN 11/26/21 03/20/24 Inhaler] Ibuprofen [Motrin Ib] 800 mg PO Q6H PRN 03/20/24 03/20/24 Previous Rx's Medication Instructions Recorded HYDROcodone/APAP 7.5-325MG [[place] 1 tab PO Q6HR PRN 3 Days #12 tab 03/20/24 7.5-325] Ondansetron Odt [Zofran Odt] 4 mg PO Q8HR PRN #10 tab 03/20/24 Allergies Allergy/AdvReac Type Severity Reaction Status Date / Time bacitracin Allergy Unknown Verified 03/20/24 20:43 [From Neosporin ([id number])] diphenhydramine Allergy Rash/Hives Verified 03/20/24 20:43 [From Benadryl] neomycin Allergy Unknown Verified 03/20/24 20:43 [From Neosporin ([id number])] polymyxin B Allergy Unknown Verified 03/20/24 20:43 [From Neosporin ([id number])] Review of Systems ROS Other: All systems not noted in ROS Statement are negative. <Alison Gaytan - Last Filed: 03/20/24 15:49> ROS Other: All systems not noted in ROS Statement are negative. <Mora Lubin - Last Filed: 03/21/24 00:38> ROS Statement: Those systems with pertinent positive or pertinent negative responses have been documented in the HPI. Past Medical History Past Medical History: No Reported History Additional Past Medical History / Comment(s): covid dx 11-17-2021, kidney stones History of Any Multi-Drug Resistant Organisms: None Reported Past Surgical History: Adenoidectomy, Tonsillectomy Past Psychological History: Anxiety, Depression Smoking Status: Never smoker Past Alcohol Use History: None Reported Past Drug Use History: None Reported <Alison Gaytan - Last Filed: 03/20/24 15:49> General Exam Limitations: no limitations <Alisno Gaytan - Last Filed: 03/20/24 15:49> Limitations: no limitations General appearance: alert, in no apparent distress Head exam: Present: atraumatic, normocephalic, normal inspection Eye exam: Present: normal appearance, PERRL, EOMI. Absent: scleral icterus, conjunctival injection, periorbital swelling ENT exam: Present: normal exam, mucous membranes moist Neck exam: Present: normal inspection. Absent: tenderness, meningismus, lymphadenopathy Respiratory exam: Present: normal lung sounds bilaterally. Absent: respiratory distress, wheezes, rales, rhonchi, stridor Cardiovascular Exam: Present: regular rate, normal rhythm, normal heart sounds. Absent: systolic murmur, diastolic murmur, rubs, gallop, clicks GI/Abdominal exam: Present: soft, normal bowel sounds. Absent: distended, tenderness, guarding, rebound, rigid Extremities exam: Present: normal inspection, full ROM, normal capillary refill. Absent: tenderness, pedal edema, joint swelling, calf tenderness Back exam: Present: normal inspection Neurological exam: Present: alert, oriented X3 Psychiatric exam: Present: normal affect, normal mood Skin exam: Present: warm, dry, intact, normal color. Absent: rash <Mora Lubin - Last Filed: 03/21/24 00:38> - General Exam Comments Initial Comments: Visual Physical Exam Vital signs reviewed General: Well-appearing, nontoxic, no acute distress. Head: Normocephalic, atraumatic Eyes: PERRLA, EOMI ENT: Airway patent Chest: Nonlabored breathing Skin: No visual rash, normal skin tone Neuro: Alert and oriented 3 Musculoskeletal: No gross abnormalities (Alison Gaytan) Course Vital Signs 03/20/24 03/20/24 03/20/24 15:21 17:54 21:43 Temperature 98.2 F 98.6 F Pulse Rate 94 79 78 Respiratory 18 18 18 Rate Blood Pressure 158/98 154/85 148/88 O2 Sat by Pulse 98 100 98 Oximetry Medical Decision Making <Alison Gaytan - Last Filed: 03/20/24 15:49> - Lab Data Result diagrams: 03/20/24 16:43 03/20/24 16:43 <Mora Lubin - Last Filed: 03/21/24 00:38> - Medical Decision Making I completed the quick note portion of this chart signed Alison Gaytan PA-C (Alison Gaytan) Was pt. sent in by a medical professional or institution ([facility] [place], ADMINISTRATIVE ASSOCIATE, urgent care, hospital, or penitentiary...) When possible be specific @ -No Did you speak to anyone other than the patient for history (EMS, parent, family, police, friend...)? What history was obtained from this source @ -No Did you review nursing and triage notes (agree or disagree)? Why? @ -I reviewed and agree with nursing and triage notes Were old charts reviewed (outside hosp., previous admission, EMS record, old EKG, old radiological studies, urgent care reports/EKG's, penitentiary records)? Report findings @ -No old charts were reviewed Differential Diagnosis (chest pain, altered mental status, abdominal pain women, abdominal pain men, vaginal bleeding, weakness, fever, dyspnea, syncope, headache, dizziness, GI bleed, back pain, seizure, CVA, palpatations, mental health, musculoskeletal)? @ -Differential Back Pain: Strain, zoster, cauda equina syndrome, epidural abscess, vertebral osteomyel itis, discitis, fracture, subluxation, disc herniation, DJD, spinal stenosis, dissection, AAA, pancreatitis, peptic ulcer disease, pyelonephritis, kidney stone, this is not meant to be an all-inclusive list. EKG interpreted by me (3pts min.). @ -None X-rays interpreted by me (1pt min.). @ -None done CT interpreted by me (1pt min.). @ -None done U/S interpreted by me (1pt. min.). @ -None done What testing was considered but not performed or refused? (CT, X-rays, U/S, labs)? Why? @ -None What meds were considered but not given or refused? Why? @ -None Did you discuss the management of the patient with other professionals (professionals i.e. , PA, ADMINISTRATIVE ASSOCIATE, lab, RT, psych nurse, social service liaison, pecan mallow dipper, teacher, president and chief operating officer, director of casework)? Give summary @ -No Was smoking cessation discussed for >3mins.? @ -No Was critical care preformed (if so, how long)? @ -No Were there social determinants of health that impacted care today? How? (Homelessness, low income, unemployed, alcoholism, drug addiction, transportation, low edu. Level, literacy, decrease access to med. care, prison, rehab)? @ -No Was there de-escalation of care discussed even if they declined (Discuss DNR or withdrawal of care, Hospice)? DNR status @ -No What co-morbidities impacted this encounter? (DM, HTN, Smoking, COPD, CAD, Cancer, CVA, ARF, Chemo, Hep., AIDS, mental health diagnosis, sleep apnea, morbid obesity)? @ -None Was patient admitted / discharged? Hospital course, mention meds given and route, prescriptions, significant lab abnormalities, going to OR and other pertinent info. @ -Discharge. Patient presented to the emergency department for evaluation of back pain. Patient has a history of kidney stones. Ultrasound of the renal and bladder was obtained showing multiple stones within the left kidney, no evidence of hydronephrosis. Laboratory studies obtained revealing no significant leukoc ytosis. CMP nonactionable. UA shows large blood with no evidence of infectious process. Patient will be prescribed pain medication and nausea medication advised to continue taking her Flomax. Advised her to follow-up with Dr. Hogue. She is understanding agreeable with this plan. Patient stable at time of discharge. Case discussed with Dr. Izaguirre. Undiagnosed new problem with uncertain prognosis? @ -No Drug Therapy requiring intensive monitoring for toxicity (Heparin, Nitro, Insulin, Cardizem)? @ -No Were any procedures done? @ -No Diagnosis/symptom? @ -Flank pain Acute, or Chronic, or Acute on Chronic? @ -Acute Uncomplicated (without systemic symptoms) or Complicated (systemic symptoms)? @ -Uncomplicated Side effects of treatment? @ -No Exacerbation, Progression, or Severe Exacerbation? @ -No Poses a threat to life or bodily function? How? (Chest pain, USA, MS, pneumonia, PE, COPD, DKA, ARF, appy, cholecystitis, CVA, Diverticulitis, Homicidal, Suicidal, threat to staff... and all critical care pts) @ -No (Mora Lubin) - Lab Data Lab Results 03/20/24 03/20/24 03/20/24 Range/Units 16:43 16:43 16:43 WBC 10.7 H (3.8-10.6) k/uL RBC 4.52 (3.80-5.40) m/uL Hgb 13.7 (11.4-16.0) gm/dL Hct 38.8 (34.0-46.0) % MCV 86.0 (80.0-100.0) fL MCH 30.3 (25.0-35.0) pg MCHC 35.3 (31.0-37.0) g/dL RDW 12.8 (11.5-15.5) % Plt Count 294 (150-450) k/uL MPV 8.0 Neutrophils % 71 % Lymphocytes % 22 % Monocytes % 4 % Eosinophils % 2 % Basophils % 0 % Neutrophils # 7.6 (1.3-7.7) k/uL Lymphocytes # 2.3 (1.0-4.8) k/uL Monocytes # 0.4 (0-1.0) k/uL Eosinophils # 0.2 (0-0.7) k/uL Basophils # 0.1 (0-0.2) k/uL Sodium (137-145) mmol/L Potassium (3.5-5.1) mmol/L Chloride (98-107) mmol/L Carbon Dioxide (22-30) mmol/L Anion Gap mmol/L BUN (7-17) mg/dL Creatinine (0.52-1.04) mg/dL Est GFR (CKD-EPI)AfAm (>60 ml/min/1.73 sqM) Est GFR (CKD-EPI)NonAf (>60 ml/min/1.73 sqM) Glucose (74-99) mg/dL Calcium (8.4-10.2) mg/dL Total Bilirubin (0.2-1.3) mg/dL AST (14-36) U/L ALT (4-34) U/L Alkaline Phosphatase (38-126) U/L Total Protein (6.3-8.2) g/dL Albumin (3.5-5.0) g/dL Lipase (23-300) U/L Urine Color Light Yellow Urine Appearance Cloudy H (Clear) Urine pH 7.5 (5.0-8.0) Ur Specific [place] 1.019 (1.001-1.035) Urine Protein Trace H (Negative) Urine Glucose (UA) Negative (Negative) Urine Ketones Negative (Negative) Urine Blood Large H (Negative) Urine Nitrite Negative (Negative) Urine Bilirubin Negative (Negative) Urine Urobilinogen <2.0 (<2.0) mg/dL Ur Leukocyte Esterase Small H (Negative) Urine RBC >182 H (0-5) /hpf Urine WBC 1 (0-5) /hpf Ur Squamous Epith Cells 2 (0-4) /hpf Urine Mucus Rare H (None) /hpf Urine Yeast (Budding) Many H (None) /hpf Urine HCG, Qual Not Detected (Not Detectd) 03/20/24 Range/Units 16:43 WBC (3.8-10.6) k/uL RBC (3.80-5.40) m/uL Hgb (11.4-16.0) gm/dL Hct (34.0-46.0) % MCV (80.0-100.0) fL MCH (25.0-35.0) pg MCHC (31.0-37.0) g/dL RDW (11.5-15.5) % Plt Count (150-450) k/uL MPV Neutrophils % % Lymphocytes % % Monocytes % % Eosinophils % % Basophils % % Neutrophils # (1.3-7.7) k/uL Lymphocytes # (1.0-4.8) k/uL Monocytes # (0-1.0) k/uL Eosinophils # (0-0.7) k/uL Basophils # (0-0.2) k/uL Sodium 136 L (137-145) mmol/L Potassium 4.7 (3.5-5.1) mmol/L Chloride 104 (98-107) mmol/L Carbon Dioxide 25 (22-30) mmol/L Anion Gap 7 mmol/L BUN 14 (7-17) mg/dL Creatinine 1.01 (0.52-1.04) mg/dL Est GFR (CKD-EPI)AfAm 84 (>60 ml/min/1.73 sqM) Est GFR (CKD-EPI)NonAf 72 (>60 ml/min/1.73 sqM) Glucose 123 H (74-99) mg/dL Calcium 9.7 (8.4-10.2) mg/dL Total Bilirubin 0.3 (0.2-1.3) mg/dL AST 22 (14-36) U/L ALT 24 (4-34) U/L Alkaline Phosphatase 85 (38-126) U/L Total Protein 6.9 (6.3-8.2) g/dL Albumin 4.4 (3.5-5.0) g/dL Lipase 132 (23-300) U/L Urine Color Urine Appearance (Clear) Urine pH (5.0-8.0) Ur Specific [place] (1.001-1.035) Urine Protein (Negative) Urine Glucose (UA) (Negative) Urine Ketones (Negative) Urine Blood (Negative) Urine Nitrite (Negative) Urine Bilirubin (Negative) Urine Urobilinogen (<2.0) mg/dL Ur Leukocyte Esterase (Negative) Urine RBC (0-5) /hpf Urine WBC (0-5) /hpf Ur Squamous Epith Cells (0-4) /hpf Urine Mucus (None) /hpf Urine Yeast (Budding) (None) /hpf Urine HCG, Qual (Not Detectd) Disposition <Alison Gaytan - Last Filed: 03/20/24 15:49> Is patient prescribed a controlled substance at d/c from ED?: No <Mora Lubin - Last Filed: 03/21/24 00:38> Clinical Impression: Flank pain Disposition: HOME SELF-CARE Condition: Stable Instructions (If sedation given, give patient instructions): Flank Pain (ED) Additional Instructions: Please follow up with your urologist. Return to the emergency department for new or worsening symptoms. Prescriptions: HYDROcodone/APAP 7.5-325MG [[place] 7.5-325] 1 tab PO Q6HR PRN 3 Days #12 tab PRN Reason: Pain Ondansetron Odt [Zofran Odt] 4 mg PO Q8HR PRN #10 tab PRN Reason: Nausea Referrals: Lux Shepard Jr, [Primary Care Provider] - 1-2 days
[2024-03-20 16:58] LABS: Basophils # (A) 0.1 k/uL (0-0.2); Basophils % (A) 0 %; Eosinophils # (A) 0.2 k/uL (0-0.7); Eosinophils % (A) 2 %; HCT 38.8 % (34.0-46.0); HGB 13.7 gm/dL (11.4-16.0); Lymphocytes # (A) 2.3 k/uL (1.0-4.8); Lymphocytes % (A) 22 %; MCH 30.3 pg (25.0-35.0); MCHC 35.3 g/dL (31.0-37.0); Monocytes # (A) 0.4 k/uL (0-1.0); Monocytes % (A) 4 %; Neutrophils # (A) 7.6 k/uL (1.3-7.7); Neutrophils % (A) 71 %; Platelet Count 294 k/uL (150-450); RBC 4.52 m/uL (3.80-5.40); RDW 12.8 % (11.5-15.5); WBC 10.7 k/uL (3.8-10.6)
[2024-03-20 17:04] LABS: Appearance,Urine Cloudy (Clear); Bilirubin,Urine Negative (Negative); Blood,Urine Large (Negative); Budding Yeast,Urine Many /hpf; Color,Urine Light Yellow; Glucose,Urine (UA) Negative (Negative); Ketones,Urine Negative (Negative); Leukocyte Esterase,Urine Small (Negative); Mucus,Urine Rare /hpf; Nitrite,Urine Negative (Negative); PH, Urine 7.5 (5.0-8.0); Protein,Urine Trace (Negative); RBC,Urine >182 /hpf (0-5); Specific Gravity,Urine 1.019 (1.001-1.035); Squamous Epithelial Cell,Urine 2 /hpf (0-4); Urobilinogen,Urine <2.0 mg/dL (<2.0); WBC,Urine 1 /hpf (0-5)
[2024-03-20 17:20] LABS: ALT 24 U/L (4-34); AST 22 U/L (14-36); African American GFR (CKD) 84 (>60 ml/min/1.73 sqM); Albumin 4.4 g/dL (3.5-5.0); Alkaline Phosphatase 85 U/L (38-126); Anion Gap 7 mmol/L; Blood Urea Nitrogen 14 mg/dL (7-17); Calcium 9.7 mg/dL (8.4-10.2); Carbon Dioxide 25 mmol/L (22-30); Chloride 104 mmol/L (98-107); Glucose 123 mg/dL (74-99); Lipase 132 U/L (23-300); Non-African American GFR(CKD) 72 (>60 ml/min/1.73 sqM); Potassium 4.7 mmol/L (3.5-5.1); Sodium 136 mmol/L (137-145); Total Bilirubin 0.3 mg/dL (0.2-1.3); Total Protein 6.9 g/dL (6.3-8.2)
[2024-03-20] MEDS: SODIUM CHLORIDE 0.9% 1,000 ML IV ONE (18:15)
[2024-03-20] MEDS: ONDANSETRON 4 MG/2 ML VIAL IVP STA (18:15)
[2024-03-20] MEDS: MORPHINE SULFATE 4 MG/ML SYRINGE IVP STA (18:15)
[2024-03-20] MEDS: KETOROLAC 15 MG/ML 1 ML VIAL IVP STA ×2 (19:04→21:38)
[2024-03-20] MEDS: MORPHINE SULFATE 2 MG/ML SYRINGE IVP ONE (19:05)
--- NOTE | 2024-03-20 19:59 | US ---
EXAMINATION TYPE: US kidneys/renal and bladder DATE OF EXAM: 03/20/2024 COMPARISON: CT 03/13/24 CLINICAL INDICATION: Female, 33 years old with history of left flank pain; Patient states left flank pain TECHNIQUE: Grayscale imaging of the bilateral kidneys and urinary bladder: FINDINGS: EXAM MEASUREMENTS: Right Kidney: 9.6 x 4.7 x 3.9 cm Left Kidney: 12.8 x 6.4 x 5.1 cm Right Kidney: wnl, no evidence for hydronephrosis, mass or renal calculus. Left Kidney: There are multiple echogenic foci seen within the left kidney, largest measuring 8mm. Th ere is a 2.0cm anechoic area within the superior aspect of the kidney suggestive of a simple renal sinus cyst. Bladder: wnl as best seen Bilateral Jets seen: yes IMPRESSION: Multiple nonobstructing left-sided renal calculi measuring up to 8 mm. No evidence of hydronephrosis. [facility], , 03/20/2024 7:57 PM
[2024-03-20] MEDS: MORPHINE SULFATE 2 MG/ML SYRINGE IVP STA (21:00)
[2024-03-20 21:44] VITALS: BP 148/88; PULSE 78; TEMP 98.6
== END 2024-03-20 21:44 | disposition home or self-care (01) ==
LOC: EC 15:20
DX: N20.0 Calculus of kidney (principal); Z88.8 Allergy status to other drugs, medicaments and biological substances
CPT/HCPCS: 36415; 80053; 83690; 85025; 81001; 81025; 76770; 99284; 96374; 96375 ×2; 96376 ×3; 96361 ×2; J2270 ×2; J2405; J1885

== ENCOUNTER 2024-03-23 11:40 | Day surgery (SDC) | payer BC ==
[2024-03-21 15:43] VITALS: BMI 38.0
--- NOTE | 2024-03-23 11:58 | XR ---
EXAMINATION TYPE: XR KUB DATE OF EXAM: 03/23/2024 11:51 AM COMPARISON: None. CLINICAL INDICATION: Female, 33 years old with history of CALCULI URINARY N20.0, TECHNIQUE: Single view of the abdomen. FINDINGS: Right renal calculi: At least 7 right renal calculi measuring up to 3.3 mm. Right ureteral calculi: None Visualized. Left renal calculi: At least 8 left renal calculi measuring up to 3 mm. Left ureteral calculi: None Visualized. Pelvic calcifications: None Visualized. Bowel gas pattern is unremarkable. No free air. No mass effects. IMPRESSION: 1. Bilateral nephrolithiasis. [facility], , 03/23/2024 11:56 AM
--- NOTE | 2024-03-23 12:18 | P.HPIHPCON ---
History of Present Illness H&P Date: 03/23/24 Chief Complaint: Bilateral renal stones, right ureteral stone This is a 33-year-old female with history of a 4 mm right ureteral stone, 6 mm left renal pelvic stone, and multiple nonobstructing stones, she is having symptomatic bilateral flank pain, has had 2 emergency room and presentation secondary to her pain. Option of bilateral ureteroscopy with holmium laser was discussed with her, she is aware of the risk which includes but not limited to bleeding, infection, injury to the ureter Consent for Procedure: I have explained the operation/procedure to the patient, including the risks, benefits, side effects, alternative therapies (including not receiving the proposed treatment or service), the likelihood of the patient achieving his/her goals, and potential recuperation problems for the procedure/sedation/analgesia, as well as any blood products, if indicated. I also explained to the patient the risks, benefits and side effects of the alternatives, as well as the risks related to not receiving the proposed procedure, care, treatment, or services. Past Medical History Past Medical History: No Reported History Additional Past Medical History / Comment(s): Hx Covid 07/23, 11/17/2021, 03/13/24. Hx of and current kidney stones. Recent high blood pressure. History of Any Multi-Drug Resistant Organisms: None Reported Past Surgical History: Adenoidectomy, Tonsillectomy Additional Past Surgical History / Comment(s): Kidney stone removal. Past Anesthesia/Blood Transfusion Reactions: No Reported Reaction Smoking Status: Never smoker - Past Family History Mother Family Medical History: No Reported History Medications and Allergies Home Medications Medication Instructions Recorded Confirmed Type Albuterol Inhaler [Ventolin Hfa 1 puff INHALATION RT-Q4H PRN 11/26/21 03/21/24 History Inhaler] Ibuprofen [Motrin Ib] 800 mg PO Q6H PRN 03/20/24 03/21/24 History Ondansetron Odt [Zofran Odt] 4 mg PO Q8HR PRN #10 tab 03/20/24 03/21/24 Rx Allergies Allergy/AdvReac Type Severity Reaction Status Date / Time bacitracin Allergy Rash/Hives Verified 03/21/24 16:07 [From Neosporin ([id number])] diphenhydramine Allergy Rash/Hives Verified 03/21/24 15:26 [From Benadryl] neomycin Allergy Rash/Hives Verified 03/21/24 16:07 [From Neosporin ([id number])] polymyxin B Allergy Rash/Hives Verified 03/21/24 16:07 [From Neosporin ([id number])] benadryl cream Allergy Rash/Hives Uncoded 03/21/24 15:59 Surgical - Exam - General no distress, moderate pain - Eyes normal ocular movement, no pale - ENT normal nares, normal mucosa - Respiratory normal expansion, normal respiratory effort Assessment and Plan Assessment: OR for bilateral ureteroscopy, holmium laser lithotripsy, stone basketing and stent insertion
[2024-03-23] MEDS ORDERED: MIDAZOLAM 2 MG/2 ML VIAL IV PRN (12:38)
[2024-03-23] MEDS ORDERED: SCOPOLAMINE 1 MG/72 HR PATCH TRANSDERM ONE (12:38)
[2024-03-23] MEDS: IV FLUID CONTINUATION 1,000 ML IV ONE ×2 (13:00→16:16)
[2024-03-23] MEDS: DEXAMETHASONE SOD PHOSPHATE 4 MG/ML 1 ML VIAL IV ONE (13:14)
[2024-03-23] MEDS: LACTATED RINGERS 1,000 ML IV SCH (13:14)
[2024-03-23] MEDS: ONDANSETRON 4 MG/2 ML VIAL IVP ONE (13:15)
[2024-03-23] MEDS ORDERED: MIDAZOLAM 2 MG/2 ML VIAL ONE (14:02)
[2024-03-23] MEDS ORDERED: LIDOCAINE 1% INJ 10MG/ML (20 ML MDV) ONE (14:02)
[2024-03-23] MEDS ORDERED: fentaNYL (PF) 50 MCG/ML 2 ML AMP ONE (14:02)
[2024-03-23] MEDS ORDERED: PROPOFOL 10 MG/ML 20 ML VIAL IV ONE (14:02)
--- NOTE | 2024-03-23 15:19 | FL ---
EXAMINATION TYPE: FL guidance operating room DATE OF EXAM: 03/23/2024 3:12 PM COMPARISON: Pre Operative Images if available both CT/MRI or plain film CLINICAL INDICATION: Female, 33 years old with history of CYSTOSCOPY LITHO; TECHNIQUE: FL guidance operating room, multiple fluoroscopic images provided for procedure. Total fluoroscopy time: 9.7 seconds Total submitted images to PACS: 2 DAP: 1.1176 mGym2 Gycm2 uGym2 cGycm2 or equivalent. FINDINGS: Multiple intraoperative fluoroscopic images were taken resulting in ureteral stent placement with sup erior pigtail in appropriate position projecting over the renal pelvis. No immediate intraoperative c omplication. Multilevel degeneration changes throughout the spine. IMPRESSION: 1. No evidence for intraoperative complication. 2. Please see the operative/procedural note for further details. [facility], , 03/23/2024 3:16 PM
[2024-03-23 15:21] VITALS: TEMP 97
--- NOTE | 2024-03-23 15:36 | P.OP ---
Date of Procedure: 03/23/24 Preoperative Diagnosis: Right ureteral stone, bilateral renal stones Postoperative Diagnosis: Same Procedure(s) Performed: Cystoscopy, bilateral ureteroscopy, holmium laser lithotripsy, stone basketing and stent insertion Implants: 6 Samoan by 26 cm stent in the bilateral ureters Anesthesia: KOSTA Surgeon: Yovani Hogue Estimated Blood Loss (ml): 5 Pathology: other (Bilateral renal stones) Condition: stable Disposition: PACU Indications for Procedure: This is a 33-year-old female with history of a 4 mm right ureteral stone, 6 mm left renal pelvic stone, and multiple nonobstructing stones, she is having symptomatic bilateral flank pain, has had 2 emergency room and presentation secondary to her pain. Option of bilateral ureteroscopy with holmium laser was discussed with her, she is aware of the risk which includes but not limited to bleeding, infection, injury to the ureter Operative Findings: Multiple bilateral renal stones greater than 10 stones were fragmented Description of Procedure: Patient brought to the operating room, general anesthesia was induced. She was prepped and draped in sterile fashion placed in a dorsolithotomy position. Cystoscopy fitted with a 21 Samoan sheath was inserted per urethra, cystoscopy was performed showed no abnormality within the bladder. Attention was then carried to the right ureteral orifice, a semirigid ureteroscope was inserted per urethra and advanced up the right ureteral orifice, the semirigid ureteroscope was advanced all the way up to the proximal ureter which showed no evidence of stones, pullback ureteroscopy was performed which showed no injury to the ureter or any ureteral stones, as ureteroscope was withdrawn a sensor wire was advanced through. Next an 1113 Samoan access sheath was passed over the wire and into the proximal ureter. Next a flexible ureteroscope was inserted through the access sheath, renoscopy was performed showed multiple stones throughout the kidney, using the holmium laser the stone was dusted, any sizable fragments were removed using the stone basket. Repeat renoscopy showed no injury to the kidney, or any sizable fragments, on fluoroscopy there was no radiopaque density seen. Pullback ureteroscopy was performed and showed no injury to the ureter or any ureteral stones, as ureteroscope was withdrawn a sensor wire was advanced through. Next a ureteral stent was passed over the wire, the proximal curl was realized on fluoroscopy and the distal curl was visualized using the cystoscope. Attention was then carried to the left ureteral orifice which was intubated with a sensor wire, the wire was advanced under fluoroscopy into the kidney. Next an 1113 Samoan access sheath was passed over the wire and into the proximal ureter. Next a flexible ureteroscope was inserted through the access sheath, renoscopy was performed showed multiple stones throughout the kidney, using the holmium laser the stones were dusted any sizable fragments were removed using the stone basket. Repeat renoscopy showed no injury to the kidney, any sizable fragments, on fluoroscopy there was no radiopaque density seen. Pullback ureteroscopy was performed and showed no injury to the ureter or any ureteral stones, as ureteroscope was withdrawn a sensor wire was advanced through. Next a ureteral stent was passed over the wire, the proximal curl was realized on fluoroscopy and the distal curl was visualized using the cystoscope. The bladder was emptied at the end the case. Patient tolerated procedure was taken to recovery in stable condition
[2024-03-23] MEDS: HYDROmorphone 0.5 MG/0.5 ML SYRINGE IVP PRN (15:46)
[2024-03-23] MEDS: KETOROLAC 15 MG/ML 1 ML VIAL IVP STA (16:59)
[2024-03-23 17:17] VITALS: BP 116/77; PULSE 84; RESP 88
== END 2024-03-23 17:51 ==
LOC: OR 11:40
PROVIDERS: ATTEND Urology
DX: N20.2 Calculus of kidney with calculus of ureter (principal); I10 Essential (primary) hypertension; F32.A Depression, unspecified; F41.9 Anxiety disorder, unspecified; K21.9 Gastro-esophageal reflux disease without esophagitis; Z86.16 Personal history of COVID-19; Z90.89 Acquired absence of other organs; Z88.8 Allergy status to other drugs, medicaments and biological substances; Z79.51 Long term (current) use of inhaled steroids; Z79.899 Other long term (current) drug therapy
CPT/HCPCS: 81025; 82365; 74018; 52356; C2625; C1769 ×2; J2250; J1100; J0690; J2405; J2003; J3010; J1885; J2704; J1171